=== PATIENT | female | born 1950 | race Caucasian/White ===

== ENCOUNTER 2020-08-13 16:34 | Inpatient (IN) | payer BC, MEDICAID ==
[~2020-08-13] VITALS: Ht 165.1 cm; Wt 70.5 kg
[~2020-08-13 16:34] MED LIST: ACET-3161; ATEN-42; BENA20TA77; CARI250T; CIPR-264; LEVO25TA2
[2020-08-13] MEDS ORDERED: NITROGLYCERIN 0.4MG TABLET SL SL ONE (17:00)
[2020-08-13] MEDS ORDERED: AMLODIPINE 5MG TABLET PO ONE (17:00)
[2020-08-13 17:08] LABS: BASOPHILS % 0.2 % (0.0-2.0); HEMATOCRIT. 33.7 % (36.0-48.0); HEMOGLOBIN. 11.4 g/dL (12.0-16.0); LYMPHOCYTES % 29.7 % (20.0-50.0); MEAN CORPUSCULAR HEMOGLOBIN 25.6 pg (28.0-32.0); MEAN CORPUSCULAR VOLUME 75.5 fL (81.0-99.0); MEAN PLATELET VOLUME 6.3 fl (7.4-10.4); MONOCYTES % 13.2 % (2.0-8.0); NEUTROPHILS % 56.9 % (40.0-76.0); PLATELET 362 x1000/uL (130-400); RED BLOOD CELL COUNT 4.46 mill/uL (4.2-5.4); RED CELL DISTRIBUTION WIDTH 16.2 % (11.6-14.6)
[2020-08-13] MEDS ORDERED: ACETAMINOPHEN 325MG TABLET PO ONE (17:15)
[2020-08-13] MEDS ORDERED: LORAZEPAM 1MG TABLET PO ONE (17:15)
[2020-08-13 17:16] LABS: CHLORIDE 91 mEq/L (98-107)
[2020-08-13] MEDS ORDERED: HYDRALAZINE HCL 10MG TABLET PO ONE (20:45)
[2020-08-13] MEDS ORDERED: ACETAMINOPHEN WITH CODEINE 300/30MG TABLET PO ONE (21:15)
[2020-08-14] VITALS (8 sets, daily range): BP systolic 138–194; BP diastolic 70–87
[2020-08-14] MEDS: CLONIDINE 0.1MG TABLET PO PRN ×2 (00:45→12:14)
[2020-08-14 07:09] LABS: BASOPHILS % 0.1 % (0.0-2.0); HEMATOCRIT. 33.1 % (36.0-48.0); HEMOGLOBIN. 10.8 g/dL (12.0-16.0); LYMPHOCYTES % 28.3 % (20.0-50.0); MEAN CORPUSCULAR HEMOGLOBIN 24.7 pg (28.0-32.0); MEAN CORPUSCULAR VOLUME 75.6 fL (81.0-99.0); MEAN PLATELET VOLUME 6.4 fl (7.4-10.4); NEUTROPHILS % 57.6 % (40.0-76.0); PLATELET 338 x1000/uL (130-400); RED BLOOD CELL COUNT 4.38 mill/uL (4.2-5.4); RED CELL DISTRIBUTION WIDTH 16.2 % (11.6-14.6)
[2020-08-14 07:23] LABS: CHLORIDE 97 mEq/L (98-107)
[2020-08-14 07:38] LABS: LDL CHOLESTEROL 144 mg/dL (5-100)
[2020-08-14 07:39] LABS: HDL CHOLESTEROL 58 mg/dL (40-59)
[2020-08-14] MEDS ORDERED: BENAZEPRIL 10MG TABLET PO SCH (09:00)
[2020-08-14] MEDS: BENAZEPRIL 10MG TABLET PO SCH ×2 (09:00→20:45)
[2020-08-14] MEDS ORDERED: NIFEDIPINE XL 60MG TAB PO SCH (09:00)
[2020-08-14] MEDS ORDERED: PNEUMOCOCCAL 23-VAL P-SAC VAC 0.5 ML IM ONE (09:00)
[2020-08-14] MEDS: METOPROLOL TARTRATE 50MG TABLET PO SCH ×2 (09:00→20:44)
[2020-08-14] MEDS ORDERED: *PATIENT'S OWN MEDICATION STORAGE XX SCH (09:15)
[2020-08-14] MEDS ORDERED: HYDRALAZINE HCL 50MG TABLET PO NR ×2 (13:00→18:15)
[2020-08-14] MEDS ORDERED: ACETAMINOPHEN WITH CODEINE 300/30MG TABLET PO PRN (13:15)
[2020-08-14 17:00] LABS: CLARITY URINE CLEAR (CLEAR); COLOR URINE YELLOW (YELLOW); KETONES URINE NEGATIVE (NEGATIVE); LEUKOCYTE ESTERASE URINE 2+ (NEGATIVE); NITRITE URINE NEGATIVE (NEGATIVE); OCCULT BLOOD URINE TRACE (NEGATIVE); PH URINE 7.5 (4.5-8.0); PROTEIN URINE NEGATIVE (NEGATIVE); SPECIFIC GRAVITY URINE 1.007 (1.005-1.030); UROBILINOGEN URINE 0.2 E.U./dL (0.2-1.0)
[2020-08-14] MEDS ORDERED: HYDR100T26 MT (18:58)
[2020-08-14] MEDS ORDERED: T3 PO (18:58)
[2020-08-14] MEDS ORDERED: NIFE-32 PO (18:58)
[2020-08-14] MEDS ORDERED: ATORVASTATIN CALCIUM 40MG TABLET PO SCH (21:00)
[2020-08-14] MEDS ORDERED: HYDRALAZINE HCL 50MG TABLET PO SCH (21:00)
== END 2020-08-14 20:50 | disposition home or self-care (01) | DRG 305 ==
LOC: EDBD 16:34 → ER 16:34 → 6WST 20:38 → EDBEDREQTM 20:40 → EDBEDREQ 20:40 → ENRESERV 21:13
PROVIDERS: ADMIT Internal Medicine; ATTEND Internal Medicine
DX: I16.0 Hypertensive urgency (principal); I50.32 Chronic diastolic (congestive) heart failure; E87.1 Hypo-osmolality and hyponatremia; I11.0 Hypertensive heart disease with heart failure; M19.90 Unspecified osteoarthritis, unspecified site; Z90.49 Acquired absence of other specified parts of digestive tract; G93.89 Other specified disorders of brain; Z88.8 Allergy status to other drugs, medicaments and biological substances; Z79.899 Other long term (current) drug therapy; E78.5 Hyperlipidemia, unspecified; I27.20 Pulmonary hypertension, unspecified; E87.8 Other disorders of electrolyte and fluid balance, not elsewhere classified; F41.9 Anxiety disorder, unspecified; E78.00 Pure hypercholesterolemia, unspecified; F17.200 Nicotine dependence, unspecified, uncomplicated
CPT/HCPCS: 36415; 71045; 80048; 80053; 80061; 81003; 83605; 83880; 84443; 84484; 85025; 93005; 93306; 99285